=== PATIENT | female | born 1990 | race Caucasian/White ===

== ENCOUNTER 2022-08-01 11:49 | Outpatient (CLI) | payer OTHER, SELFPAY ==
[2022-08-01 20:15] LABS: Alanine Aminotransferase 15 U/L (6-35); Albumin Level 4.7 g/dL (3.5-5.1); Alkaline Phosphatase 44 U/L (38-126); Anion Gap 11 mmol/L (8-16); Aspartate Amino Transferase 25 U/L (14-36); Bilirubin,Total 0.7 mg/dL (0.2-1.3); Blood Urea Nitrogen 13 mg/dL (7-17); Calcium 9.2 mg/dL (8.4-10.2); Carbon Dioxide 25 mmol/L (22-30); Chloride 103 mmol/L (98-107); Estimated Glomerular Filt Rate > 60; Glucose 99 mg/dL (65-110); Magnesium 1.9 mg/dL (1.6-2.3); Potassium 4.3 mmol/L (3.4-5.0); Sodium 139 mmol/L (137-145)
[2022-08-01 21:24] LABS: Folic Acid > 20.0 ng/mL (2.76->20)
== END 2022-08-01 11:50 | disposition home or self-care (01) ==
LOC: ANHGOSHLAB 11:51
PROVIDERS: PCP Internal Medicine; Visit Provider Internal Medicine
DX: H81.90 Unspecified disorder of vestibular function, unspecified ear (principal); R20.2 Paresthesia of skin; R51.9 Headache, unspecified
CPT/HCPCS: 36415; 80053; 82607; 82746; 83735

== ENCOUNTER → 2022-08-17 08:40 | Outpatient (CLI) | payer OTHER, SELFPAY ==
--- NOTE | ~2022-08-17 | MR_ITS ---
EXAMINATION: MR brain/brain stem wo/w con DATE: 08/17/2022 09:17 INDICATION: Expressive aphasia. Headache. TECHNIQUE: Magnetic resonance imaging (MRI) of the brain and brainstem was performed without and with 14 mL MultiHance intravenous contrast. COMPARISON: None. FINDINGS: There is a focus of increased T2-weighted signal intensity in the left frontal lobe white m atter, which is normal as an isolated finding. 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 There is no intracranial hemorrhage, acute infarction, or abnormal intracranial mass lesion. The ventricles are normal in size. There is a mucous retention cyst in right maxillary sinus. The orb its are normal. The mastoid air cells are normal. IMPRESSION: 1. Normal brain. Reviewed, dictated and finalized at location A. [employer] IMPRESSION: 1. Normal brain.
== END ==
PROVIDERS: PCP Internal Medicine; Visit Provider Clinical Nurse Specialist
DX: R20.2 Paresthesia of skin (principal); R47.01 Aphasia; R51.9 Headache, unspecified; R42 Dizziness and giddiness
CPT/HCPCS: 70553; A9577

== ENCOUNTER 2023-07-12 14:50 | Outpatient (CLI) | payer BC, SELFPAY ==
[2023-07-12 15:37] LABS: D Dimer 0.37 ug/mL (<0.48)
== END 2023-07-12 14:51 | disposition home or self-care (01) ==
PROVIDERS: PCP Internal Medicine; Visit Provider Nurse Practitioner
DX: R00.0 Tachycardia, unspecified (principal)
CPT/HCPCS: 36415; 85380